=== PATIENT | male | born 1990 | race Caucasian/White ===

== ENCOUNTER 2019-08-04 17:10 | Emergency (ER) | payer OTHER ==
[~2019-08-04] VITALS: Ht 177.8 cm; Wt 77.1 kg
[2019-08-04 17:15] VITALS: Ht 177.8 cm; Wt 77.1 kg
[2019-08-04 19:54] VITALS: BP 155/96
== END 2019-08-04 22:38 | disposition home or self-care (01) ==
LOC: ED 17:10
DX: T40.1X1A Poisoning by heroin, accidental (unintentional), initial encounter (principal); R11.0 Nausea; Y92.89 Other specified places as the place of occurrence of the external cause
CPT/HCPCS: J2405